=== PATIENT | female | born 1960 | race Hispanic/Latino ===

== ENCOUNTER 2024-01-09 00:16 | Observation (INO) | payer OTHER, MEDICARE ==
[2024-01-09] VITALS (12 sets, daily range): BP systolic 104–150; BP diastolic 47–91; PULSE 66–96; RESP 17–22; O2SAT 96
[~2024-01-09] VITALS: Ht 165.1 cm; Wt 74.2 kg
[~2024-01-09 00:16] MED LIST: CALC200T16 PO; CYCL-309 PO; FAMO20TA8 PO; FISH1CAP63 PO; HYDR-3421 PO; HYDR25TA PO; IBUP-2077 PO; METO-408 PO; NETA2.5D3 OU; RIVA20TA PO; SEMA0.258 SQ
[2024-01-09] MEDS: DILTIAZEM 25MG INJ IVP ONE ×3 (00:19→01:26)
[2024-01-09] MEDS: AMIODARONE 150MG VIAL 150 MG in DEXTROSE 5%-WATER 100 ML IV SCH (00:22)
[2024-01-09] MEDS: AMIODARONE 150MG VIAL ONE (00:29)
[2024-01-09] MEDS: SOLU-MEDROL 125MG VIAL ONE (00:44)
[2024-01-09] MEDS: DiphenhydrAMINE HCL 50 MG/ML VIAL ONE (00:44)
[2024-01-09] MEDS: SOLU-MEDROL 125MG VIAL IVP ONE (00:46)
[2024-01-09] MEDS: DiphenhydrAMINE HCL 50 MG/ML VIAL IV ONE (00:46)
[2024-01-09] MEDS: ONDANSETRON 4MG INJ IVP ONE ×2 (00:47)
[2024-01-09 01:05] LABS: APPEARANCE,URINE CLEAR (CLEAR); BILIRUBIN,URINE NEGATIVE (NEGATIVE); COLOR,URINE COLORLESS (YELLOW); GLUCOSE, URINE (UA) NEGATIVE (NEGATIVE); KETONES,URINE NEGATIVE (NEGATIVE); LEUKOCYTE ESTERASE ,URINE NEGATIVE Leu/uL (NEGATIVE); NITRATE,URINE NEGATIVE (NEGATIVE); OCCULT BLOOD,URINE NEGATIVE (NEGATIVE); PH,URINE 6.5 (5.0-8.0); PROTEIN,URINE NEGATIVE (NEGATIVE); UROBILINOGEN,URINE 0.2 mg/dL (0.2-1.0)
[2024-01-09 01:07] LABS: ADD UA MICROSCOPIC NO
[2024-01-09 01:09] LABS: BASOPHILS # (AUTO) 0.09 K/uL (0.00-0.20); BASOPHILS % (AUTO) 0.8 % (0.0-5.0); EOSINOPHILS # (AUTO) 0.28 K/uL (0.00-0.70); EOSINOPHILS % (AUTO) 2.5 % (0.0-8.0); HEMATOCRIT 48.3 % (36-48); IMMATURE GRANULOCYTE ABSOLUTE 0.04 K/uL (0-1); LYMPHOCYTES # (AUTO) 4.7 K/uL (1.0-4.8); LYMPHOCYTES % (AUTO) 41.2 % (21.0-51.0); MEAN CORPUSCULAR HEMOGLOBIN 30.9 pg (27.0-33.0); MEAN CORPUSCULAR HGB CONC 33.5 g/dL (32.0-36.0); MEAN CORPUSCULAR VOLUME 92.2 fL (79-99); MONOCYTES # (AUTO) 0.7 K/uL (0.1-1.0); NEUTROPHILS # (AUTO) 5.6 K/uL (1.8-7.7); NEUTROPHILS % (AUTO) 49.1 % (40.0-77.0); PLATELET COUNT (AUTO) 304 K/uL (130-400); RED BLOOD CELL COUNT(AUTO) 5.24 MIL/uL (4.00-5.50); RED CELL DISTRIBUTION WIDTH 13.3 % (11.0-15.5); WHITE BLOOD COUNT (AUTO) 11.4 K/uL (4.8-10.8)
[2024-01-09 01:21] LABS: INR 1.17 (0.85-1.15); PROTHROMBIN TIME 13.6 SEC (9.6-11.6)
[2024-01-09 01:25] LABS: CREATININE 0.6 mg/dL (0.5-1.5); POTASSIUM 3.2 mmol/L (3.5-5.1)
[2024-01-09] MEDS: LACTATED RINGERS 1000ML 1,000 ML IV ONE (01:25)
[2024-01-09] MEDS: DILTIAZEM 125 MG/25 ML INJ 125 MG in 0.9%NACL 100ML 100 ML IV SCH (01:28)
[2024-01-09 01:30] LABS: ALBUMIN 3.2 g/dL (3.5-5.0); BILIRUBIN,TOTAL 0.6 mg/dL (0.2-1.0); TOTAL PROTEIN, SERUM 6.8 g/dL (6.0-8.3)
[2024-01-09 01:38] LABS: B-TYPE NATRIURETIC PEPTIDE 17 pg/mL (0-100)
[2024-01-09 01:55] LABS: PARTIAL THROMBOPLASTIN TIME 46.1 SEC (26.3-35.5)
[2024-01-09] MEDS: ACETAMINOPHEN 500 MG TABLET PO ONE (01:57)
[2024-01-09] MEDS ORDERED: LACTULOSE 20 GM/30 ML UDCUP PO PRN (02:30)
[2024-01-09] MEDS ORDERED: LABETALOL 20MG SYG IV PRN (02:30)
[2024-01-09] MEDS ORDERED: ONDANSETRON 4MG INJ IVP PRN (02:30)
[2024-01-09] MEDS ORDERED: POTASSIUM CHLORIDE 10MEQ/100ML 100 ML IV PRN (02:30)
[2024-01-09] MEDS: POTASSIUM CHLORIDE 10% ELIXIR 20 MEQ/15 ML UDCUP PO PRN (02:40)
[2024-01-09] MEDS: KCL 20 MEQ ERTAB PO PRN (04:26)
[2024-01-09] MEDS: NITROGLYCERIN 1GM OINT 1 INCH/1GM TD ONE (07:15)
[2024-01-09] MEDS: ASPIRIN 81MG CHEW TAB PO SCH (09:17)
[2024-01-09] MEDS: FAMOTIDINE 20MG VIAL IV SCH (09:17)
[2024-01-09] MEDS: METOPROLOL SUCCINATE 50 MG TAB.SR.24H PO ONE (22:19)
[2024-01-09] MEDS: TEMAZEPAM 15 MG CAPSULE PO PRN (22:19)
[2024-01-10 00:20] VITALS: BP 134/70; PULSE 73; RESP 20
[2024-01-10] MEDS ORDERED: NACL NASAL SPRAY 120 SPRAY/BOTTLE NS PRN ×2 (00:30→07:30)
[2024-01-10 04:00] VITALS: BP 127/70; PULSE 73; RESP 20
[2024-01-10 05:05] LABS: BASOPHILS # (AUTO) 0.06 K/uL (0.00-0.20); BASOPHILS % (AUTO) 0.3 % (0.0-5.0); EOSINOPHILS # (AUTO) 0.04 K/uL (0.00-0.70); EOSINOPHILS % (AUTO) 0.2 % (0.0-8.0); HEMATOCRIT 41.9 % (36-48); LYMPHOCYTES # (AUTO) 4.7 K/uL (1.0-4.8); LYMPHOCYTES % (AUTO) 27.4 % (21.0-51.0); MEAN CORPUSCULAR HEMOGLOBIN 30.3 pg (27.0-33.0); MEAN CORPUSCULAR HGB CONC 33.2 g/dL (32.0-36.0); MEAN CORPUSCULAR VOLUME 91.3 fL (79-99); MONOCYTES # (AUTO) 0.9 K/uL (0.1-1.0); MONOCYTES % (AUTO) 5.4 % (3.0-13.0); NEUTROPHILS # (AUTO) 11.4 K/uL (1.8-7.7); NEUTROPHILS % (AUTO) 66.1 % (40.0-77.0); PLATELET COUNT (AUTO) 318 K/uL (130-400); RED BLOOD CELL COUNT(AUTO) 4.59 MIL/uL (4.00-5.50); RED CELL DISTRIBUTION WIDTH 13.5 % (11.0-15.5); WHITE BLOOD COUNT (AUTO) 17.3 K/uL (4.8-10.8)
[2024-01-10 05:29] LABS: CREATININE 0.5 mg/dL (0.5-1.5); MAGNESIUM 2.1 mg/dL (1.80-2.40); POTASSIUM 3.7 mmol/L (3.5-5.1)
[2024-01-10] MEDS: ACETAMINOPHEN 325 MG TAB PO PRN (05:35)
[2024-01-10 07:53] VITALS: BP 150/90; PULSE 68; RESP 18
[2024-01-10 08:00] VITALS: O2SAT 96
[2024-01-10 12:11] VITALS: BP 164/92; PULSE 68; RESP 18
[2024-01-10 16:01] VITALS: BP 142/105; PULSE 73; RESP 18
[2024-01-10] MEDS ORDERED: CYCLOBENZAPRINE HCL 10 MG TABLET PO PRN (16:30)
[2024-01-10] MEDS ORDERED: HYDROXYZINE 25 MG TABLET PO PRN (16:30)
[2024-01-10] MEDS ORDERED: METOPROLOL SUCCINATE 25 MG TAB.SR.24H PO SCH (21:00)
[2024-01-10] MEDS ORDERED: RIVAROXABAN 20 MG TABLET PO SCH (21:00)
[2024-01-10] MEDS ORDERED: FAMOTIDINE 20MG TAB PO SCH (21:00)
[2024-01-11] MEDS ORDERED: HYDROCHLOROTHIAZIDE 25 MG TABLET PO SCH (09:00)
[2024-01-11] MEDS ORDERED: FAMOTIDINE 20MG TAB PO SCH (09:00)
== END 2024-01-10 17:30 | disposition home or self-care (01) ==
LOC: EDH 00:16 → EDHIP 02:15 → 2AH 03:00
PROVIDERS: ADMIT Internal Medicine Critical Care Medicine; ATTEND Internal Medicine Critical Care Medicine
DX: I48.20 Chronic atrial fibrillation, unspecified (principal); R07.89 Other chest pain; E87.6 Hypokalemia; E78.5 Hyperlipidemia, unspecified; M48.061 Spinal stenosis, lumbar region without neurogenic claudication; F41.9 Anxiety disorder, unspecified; H40.9 Unspecified glaucoma; I10 Essential (primary) hypertension; I44.7 Left bundle-branch block, unspecified; T46.2X5A Adverse effect of other antidysrhythmic drugs, initial encounter; Z79.01 Long term (current) use of anticoagulants; Z79.899 Other long term (current) drug therapy; Z87.891 Personal history of nicotine dependence; Z90.710 Acquired absence of both cervix and uterus; Z90.711 Acquired absence of uterus with remaining cervical stump
CPT/HCPCS: 96376 ×2; 96365; 96375; 96366; 84443; 82550; 83735 ×2; 84484 ×4; 80061; 80053; 83880; 85025 ×2; 85378; 85610; 85730; 87077; 87088; 87186; 81003; 36415 ×2; 71045; 93306; 99291; 99292; 93005 ×2; 84100; 80048; G0378 ×38; J1200; J3490 ×5; J2930; J2405; J0282

== ENCOUNTER 2024-09-25 22:11 | Observation (INO) | payer OTHER, MEDICARE ==
[~2024-09-25] VITALS: Ht 165.1 cm; Wt 75.3 kg
[2024-09-25] MEDS: dilTIAZem 25MG INJ IVP ONE ×2 (22:44→22:46)
--- NOTE | 2024-09-25 22:57 | ERN ---
ED Note History of Present Illness Stated Complaint: CHEST PAIN Chief Complaint: Chest Pain Time Seen by MD: 22:18 Dictation: Patient is 64-year-old female who came via EMS with complaints of severe left- sided chest pain that started around 8:00 p.m. which is about 2-3 hours ago. She was noted to be quite diaphoretic and was in severe discomfort. She thought that she was having severe anxiety attack. She reports some nausea but no loss of consciousness. She appeared very sick during my evaluation. Her last meal was around 2:00 p.m.. No cough sputum or hemoptysis Temperature 98 pulse 148 respirations 16 blood pressure 106/92 with a pulse oxi metry of 97% on room air Her chronic medical problems include diabetes mellitus, hypertension, atrial fibrillation on Xarelto, anxiety, gastroesophageal reflux disease, hypercholesterolemia Allergies: Coded Allergies: amiodarone (Verified Allergy, Severe, HIVES, 01/09/24) caffeine (Verified Allergy, Intermediate, palptiations, 05/05/22) pseudoephedrine (Verified Allergy, Unknown, palpitations, 05/05/22) atorvastatin (Unverified Adverse Reaction, Severe, 05/12/17) MUSCLE WEAKNESS Home Meds Active Scripts Hydrochlorothiazide (Hydrochlorothiazide) 25 Mg Tablet, 12.5 MG PO DAILY, #30 TAB Prov:TRINA ALFARO [facility] 10/06/23 Famotidine (Famotidine) 20 Mg Tablet, 20 MG PO DAILY, #30 TAB Prov:TRINA ALFARO [facility] 10/06/23 Cyclobenzaprine HCl (Cyclobenzaprine HCl) 10 Mg Tablet, 5 MG PO TID PRN for MUSCLE SPASM, #30 TAB Prov:TRINA ALFARO [facility] 10/06/23 Reported Medications Calcium Citrate (Calcium Citrate) 200 Mg (950 Mg) Tablet, 1 TAB PO BID 10/02/23 Netarsudil Mesylat/Latanoprost (Rocklatan 0.02%-0.005% Eye Drp) 0.02 %-0.005 % Drops, 1 DROP OU HS 10/02/23 Ibuprofen (Ibuprofen 800 mg Tab) 800 Mg Tab, 1 TAB PO TID PRN for PAIN LEVEL 1 TO 5 10/02/23 Semaglutide (Ozempic) 0.25 Mg/0.368 Ml Pen.injctr, 0.25 MG SQ QWEEK 10/02/23 Rivaroxaban (Xarelto) 20 Mg Tablet, 20 MG PO HS, TAB 10/02/23 Metoprolol Succinate (Metoprolol Succinate) 25 Mg Tab.er.24h, 1 TAB PO HS 10/02/23 Fish Oil/Dha/Epa (Fish Oil 1,200 mg Fish Oil) 1 Each Capsule, 1 EACH PO DAILY, CAP 05/11/17 Hydroxyzine HCl (Hydroxyzine HCl) 25 Mg Tablet, 25 MG PO HS PRN for INSOMNIA, TAB 05/11/17 Past Medical History Past Medical History: A-Fib, Anxiety, Glaucoma, Hypertension Surgical History: Hysterectomy, Cholecystectomy Surgical History Other: R ANKLE Family History: Negative Social History: Smokers, Lives with family History: Not Applicable RN Note Reviewed/Agreed w/PFSH: Yes Review of System Dictation Constitutional: Negative for fever,chills, and weight loss Eyes: Negative for injury, pain,redness, and discharge ENT: Negative for injury,pain or swelling Cardiovascular: Positive for chest pain, palpitations, and no edema Respiratory: Negative for shortness of breath, cough, and wheezing, Abdomen/GI: Negative for abdominal pain, nausea, vomiting, diarrhea, and constipation Back: Negative for injury and pain : Negative for injury, bleeding and discharge MS/Extremity: Negative for injury and deformity Skin: Negative for rash, and discoloration Neuro: Negative for headache, weakness, numbness, tingling, and seizure Psych: Negative for suicide ideation, homicidal ideation, and hallucinations Initial Vital Sign VS Vital Signs Date Time Temp Pulse Resp B/P (MAP) Pulse Ox O2 Delivery O2 Flow Rate FiO2 09/25/24 22:24 98.1 148 16 106/92 97 Room Air 0 09/25/24 22:44 21 Physical Exam Dictation General: awake, alert, NAD , diaphoretic appears very sick Head/Face: Normocephalic, atraumatic Eyes: PERRL, EOMI, vision at baseline ENT: oral cavity clear, TMs clear, no signs of infection Neck: Trachea midline, supple, no nuchal rigidity Cardiovascular: Tachycardic irregular heart rates around 160s No MRGs, no JVD Respiratory: CTAB, no respiratory distress, No rales or wheezes Abdomen: Soft, non-tender, non-distended, normal bowel sounds, no guarding or rebound. Skin: Warm, dry, normal turgor, no rash MS/Extremity: Pulses equal, no cyanosis, neurovascular intact, FROM Neuro: COAx4, GCS 15, strength 5/5, CN 2-12 intact, normal cerebellar exam, normal gait, Psych: Normal behavior, mood, and affect normal Extremities-trace edema without any palpable cords, Homans sign is negative Results (Laboratory/Radiology) Laboratory/Radiology Laboratory Tests Test 09/25/24 22:34 09/25/24 22:52 09/25/24 23:13 Whole Blood Glucose 156 MG/DL (70-110) H White Blood Count 16.7 K/uL (4.8-10.8) H Red Blood Count 5.05 MIL/uL (4.00-5.50) Hemoglobin 15.3 g/dL (12.0-16.0) Hematocrit 44.7 % (36-48) Mean Corpuscular Volume 88.5 fL (79-99) Mean Corpuscular Hemoglobin 30.3 pg (27.0-33.0) Mean Corpuscular Hemoglobin Concent 34.2 g/dL (32.0-36.0) Red Cell Distribution Width 13.0 % (11.0-15.5) Platelet Count 314 K/uL (130-400) Mean Platelet Volume 10.0 fL (7.5-10.5) Immature Granulocyte % (Auto) 0.6 % (0-1) Neutrophils (%) (Auto) 57.3 % (40.0-77.0) Lymphocytes (%) (Auto) 35.4 % (21.0-51.0) Monocytes (%) (Auto) 4.5 % (3.0-13.0) Eosinophils (%) (Auto) 1.7 % (0.0-8.0) Basophils (%) (Auto) 0.5 % (0.0-5.0) Neutrophils # (Auto) 9.6 K/uL (1.8-7.7) H Lymphocytes # (Auto) 5.9 K/uL (1.0-4.8) H Monocytes # (Auto) 0.8 K/uL (0.1-1.0) Eosinophils # (Auto) 0.29 K/uL (0.00-0.70) Basophils # (Auto) 0.08 K/uL (0.00-0.20) Absolute Immature Granulocyte (auto 0.10 K/uL (0-1) Segmented Neutrophils % 61 % (40-70) Lymphocytes % (Manual) 33 % (22-44) Monocytes % (Manual) 4 % (2-9) Eosinophils % (Manual) 2 % (1-6) Nucleated Red Blood Cells 0.0 % (0.0-0.19) Differential Comment MANUAL DIFFERENTIAL White Cell Morphology Comment Platelet Morphology Comment See comments Red Blood Cell Morphology See comments Sodium Level 140 mmol/L (136-145) Potassium Level 2.8 mmol/L (3.5-5.1) *L Chloride Level 103 mmol/L (101-111) Carbon Dioxide Level 25 mmol/L (21-32) Blood Urea Nitrogen 10 mg/dL (7-18) Creatinine 0.6 mg/dL (0.5-1.0) Glomerular Filtration Rate Calc 99 mL/min (>90) Random Glucose 169 mg/dL (70-105) H Total Calcium 9.4 mg/dL (8.5-10.1) Troponin I High Sensitivity 8 ng/L (4-50) B-Type Natriuretic Peptide 28 pg/mL (0-100) Troponin I < 0.05 ng/mL (0.00-0.05) Labs Reviewed?: Yes EKG Comment: Twelve lead EKG done on 09/25/2024 at 10:30 p.m. showed an irregular rhythm with a heart rate of 155, QRS 77 QT/QTC 266/428 Impression atrial fibrillation with rapid ventricular response multiple polymorphic PVCs noted. Repolarization abnormalities read related also noted. No acute ST elevations or deep ST depressions noted. Interpreted by Dr. Cornell X-RAY Comment: PATIENT: CHET HA MR#: [id number] : 1960 SEX: F AGE: 64 LOCATION: ED ORDER 22 STATUS: [facility] REPORT#: [id number] SERVICE 20 REASON: Chest pain Known CAD, afib, evaluate for CHF ORDERING PHYSICIAN: TRINA CORNELL MD PROCEDURE: CXR1VW - CHEST 1VW CHEST 1VW HISTORY: Chest pain COMPARISON: 01/09/2024 FINDINGS: A frontal projection of the chest was obtained. No acute pulmonary infiltrates is seen. The heart is normal in size. Prominent interstitial markings are seen. Aortic calcifications are seen. No evidence of aortic calcification is seen. IMPRESSION: 1. No acute pulmonary infiltrate is seen. DICTATED BY: NICK SABA MD DATE: 09/25/242300 ELECTRONICALLY SIGNED BY: NICK SABA MD DATE: 09/25/242303 ED Course ED Course Orders Procedure Category Date Status Time Cbc With Differential LAB 09/25/24 Complete 22:21 B-Type Natriuretic LAB 09/25/24 Complete Peptide 22:21 Chest 1vw RAD 09/25/24 Resulted 22:21 12 Lead Ekg Tracing- EKG 09/25/24 Logged Technical 22:21 Nitroglycerin 1gm PHA 09/25/24 Complete Oint (Nitroglycerin 1g 22:30 Troponin I High LAB 09/25/24 Complete Sensitivity 22:21 Aspirin 325mg Tab PHA 09/25/24 Complete (Aspirin 325mg Tab) 22:30 Troponin Poc Order LAB 09/25/24 Complete Only 22:21 Bedside Troponin-I LAB.ER 09/25/24 In Process (Poc) 22:21 Basic Metabolic Panel LAB 09/25/24 Complete 22:21 Diltiazem 25mg Inj PHA 09/25/24 Complete (Cardizem 25mg Inj) 23:00 Diltiazem 25mg Inj PHA 09/25/24 Complete (Cardizem 25mg Inj) 22:38 Manual Differential LAB 09/25/24 Complete 22:52 Potassium Bicarb/Cit PHA 09/25/24 Complete Ac 25meq (K-Lyte Ta 23:30 Urinalysis Profile LAB 09/25/24 Logged 23:54 Admit Orders ADM 09/26/24 Transmitted 00:03 Edm Admit Bridge Order ADM 09/26/24 Transmitted 00:14 Current Medications Medications (Trade) Dose Ordered Sig/Giorgio Route PRN Reason Start Time Stop Time Status Last Admin Dose Admin Aspirin (Aspirin 325mg Tab) 325 mg ONCE ONCE PO 09/25/24 22:30 09/25/24 22:31 DC 09/25/24 23:01 Diltiazem HCl (CARDIzem 25MG INJ) 10 mg ONCE ONCE IVP 09/25/24 23:00 09/25/24 23:01 DC 09/25/24 22:46 Diltiazem HCl (CARDIzem 25MG INJ) 25 mg STK-MED ONCE IVP 09/25/24 22:38 09/25/24 22:39 DC Nitroglycerin (Nitroglycerin 1gm Oint) 1 inch ONCE ONCE TD 09/25/24 22:30 09/25/24 22:31 DC 09/25/24 23:07 Potassium Bicarbonate (K-Lyte Tablet Eff 25 Meq Tablet.eff) 50 meq ONCE ONCE PO 09/25/24 23:30 09/25/24 23:31 DC 09/25/24 23:22 Vital Signs Date Time Temp Pulse Resp B/P (MAP) Pulse Ox O2 Delivery O2 Flow Rate FiO2 09/25/24 22:44 125 24 126/86 97 Room Air* 0 21 09/25/24 22:44 155 09/25/24 22:24 98.1 148 16 106/92 97 Room Air 0 We will perform diagnostic labs, advanced imaging and administer medications according to the patient's complaint. Once the results are available, will review and personally interpreted the labs to rule out any acute life- threatening emergency the trach require immediate intervention and treatment. I will then re-evaluate the patient after treatment and diagnostic exams have return to determine whether the patient requires any further testing, can safely be discharged home or need further admission to hospital for additional treatment and evaluation. Labs reviewed CBC shows a white count of 16.7, BNP 7 is significant for a potassium of 2.8 BUN and creatinine are 10 and 0.6. Chest x-ray mild cardiomegaly. Urinalysis is still pending. Potassium repletion requested Patient responded very well to a dose of diltiazem 10 mg IV. Recommended admission to the hospital for further management. Patient accepted by the [facility] hospitalist group nurse practitioner Xiao for admission and further management. HEART Score Response (Comments) Value History: Moderate suspicion (+1) 1 EKG: Repolarization changes 1 Age: > 65yrs (+2) 2 Initial Troponin: 1-3x Normal Limit (+1) 1 HEART Score Risk: Mod Risk for MACE (4-6) Total 5 Medical Decision Making MDM MDM: Differential diagnosis: Atrial fibrillation with rapid ventricular response, chest pain related to AFib, unstable angina Rationale: Tests considered and ordered secondary to shared decision making include: labs, ECG and radiology Previous outside records reviewed: Old ER visits. Risk of complication and/or morbidity or mortality of patient management: None Medications-Per medication reconciliation Need for hospitalization: Patient does meet criteria for hospitalization. Need for emergency major/minor surgery: No There are no social concerns with this patient. Prescription drug management Prescriptions will include symptomatic care Patient's prior external medical records from other ER visits were reviewed by me as indicated. Prior testing and results from previous visits were reviewed. Prior tests were taken into account with medical decision making and resource utilization, independent historian/historians were used to obtain complete medical history. I independently interpreted the test that were performed, results were reviewed by me and considered findings on radiology if ordered. Medical management and examination interpretation discussions were had by me with other qualified healthcare professionals as indicated for the patient's care. Problem List Problem List: (1) Diabetes mellitus (2) Hypercholesterolemia (3) Hypertension (4) Atrial fibrillation with rapid ventricular response (5) Chest pain (6) Hypokalemia DX & DISP Disposition: Inpatient Decision to Admit Time: 22:57 Departure Impression: Primary Impression: Atrial fibrillation with rapid ventricular response Additional Impressions: Chest pain, Diabetes mellitus, Hypercholesterolemia, Hypertension, Hypokalemia, Hypotension Condition: Stable Additional Instructions: Patient was informed of all the diagnostic labs and procedures conducted in the emergency room today and demonstrated understanding of the results. I personally reviewed and interpreted all the diagnostic exams performed in the ER today. The patient will be admitted to the hospital for further treatment and evaluation. Disposition-admit to facility Condition-stable/guarded Course-uncertain at this time Pain status-decreased Assessment-exam unchanged Admission Certification- I certify that the patients status is appropriate and is based on my best clinical judgment and the patient's condition as documented in the medical records Referrals: SARAH YO MD (PCP) TRINA CORNELL MD Sep 25, 2024 22:57
[2024-09-25 23:00] LABS: BASOPHILS # (AUTO) 0.08 K/uL (0.00-0.20); BASOPHILS % (AUTO) 0.5 % (0.0-5.0); EOSINOPHILS # (AUTO) 0.29 K/uL (0.00-0.70); EOSINOPHILS % (AUTO) 1.7 % (0.0-8.0); HEMATOCRIT 44.7 % (36-48); LYMPHOCYTES # (AUTO) 5.9 K/uL (1.0-4.8); LYMPHOCYTES % (AUTO) 35.4 % (21.0-51.0); MEAN CORPUSCULAR HEMOGLOBIN 30.3 pg (27.0-33.0); MEAN CORPUSCULAR HGB CONC 34.2 g/dL (32.0-36.0); MEAN CORPUSCULAR VOLUME 88.5 fL (79-99); MONOCYTES # (AUTO) 0.8 K/uL (0.1-1.0); MONOCYTES % (AUTO) 4.5 % (3.0-13.0); NEUTROPHILS # (AUTO) 9.6 K/uL (1.8-7.7); NEUTROPHILS % (AUTO) 57.3 % (40.0-77.0); PLATELET COUNT (AUTO) 314 K/uL (130-400); RED BLOOD CELL COUNT(AUTO) 5.05 MIL/uL (4.00-5.50); WHITE BLOOD COUNT (AUTO) 16.7 K/uL (4.8-10.8)
[2024-09-25] MEDS: ASPIRIN 325MG TAB PO ONE (23:01)
--- NOTE | 2024-09-25 23:04 | HMCIMG ---
CHEST 1VW HISTORY: Chest pain COMPARISON: 01/09/2024 FINDINGS: A frontal projection of the chest was obtained. No acute pulmonary infiltrates is seen. The heart is normal in size. Prominent interstitial markings are seen. Aortic calcifications are seen. No evidence of aortic calcification is seen. IMPRESSION: 1. No acute pulmonary infiltrate is seen.
[2024-09-25] MEDS: NITROGLYCERIN 1GM OINT 1 INCH/1GM TD ONE (23:07)
[2024-09-25 23:10] LABS: CREATININE 0.6 mg/dL (0.5-1.0)
[2024-09-25 23:14] LABS: POTASSIUM 2.8 mmol/L (3.5-5.1)
[2024-09-25] MEDS: PoTASSium BIcarbonate/CIT AC 25 MEQ TABLET.EFF PO ONE (23:22)
[2024-09-25 23:49] LABS: EOSINOPHILS % (MANUAL) 2 % (1-6); LYMPHOCYTES % (MANUAL) 33 % (22-44); MAN.DIFF COMMENT-IMPRESSION MANUAL DIFFERENTIAL; MONOCYTES % (MANUAL) 4 % (2-9); SEGMENTED NEUTROPHILS % 61 % (40-70); TOTAL CELLS COUNTED 100
[2024-09-25 23:51] LABS: B-TYPE NATRIURETIC PEPTIDE 28 pg/mL (0-100)
[2024-09-26] VITALS (8 sets, daily range): BP systolic 118–154; BP diastolic 49–97; PULSE 65–73; RESP 16–18; TEMP 97.4–98.4; O2SAT 95–99
[2024-09-26] MEDS: PoTASSium chloRIDE 20MEQ ER 20 MEQ ERTAB PO ONE (02:05)
[2024-09-26] MEDS: ondanSETRON 4MG INJ IVP ONE (02:05)
--- NOTE | 2024-09-26 05:03 | NUR ---
REPORT GIVEN TO SHILPA RIBEIRO
--- NOTE | 2024-09-26 06:31 | EKG ---
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
[2024-09-26] MEDS ORDERED: hydrALAZine 20MG/ML VIAL IV PRN (07:30)
[2024-09-26] MEDS ORDERED: doCUSate SODIUM 100 MG CAP PO PRN (07:30)
[2024-09-26] MEDS ORDERED: LACTULOSE 20 GM/30 ML UDCUP PO PRN (07:30)
[2024-09-26] MEDS ORDERED: ondanSETRON 4MG INJ IVP PRN (07:30)
[2024-09-26] MEDS ORDERED: acetaMINOPHEN 650 MG SUPPOSITORY RC PRN (07:30)
[2024-09-26] MEDS: INSULIN humuLIN R 100 UNIT/ML 3ML SQ SCH (07:30)
[2024-09-26] MEDS ORDERED: DEXTROSE 50%-WATER 50 ML DISP.SYRIN IV PRN (08:00)
[2024-09-26] MEDS ORDERED: PoTASSium chloRIDE 20MEQ/100ML 100 ML IV PRN (08:00)
[2024-09-26] MEDS ORDERED: GLUCAGON 1MG KIT 1 MG ML IM PRN (08:00)
[2024-09-26] MEDS ORDERED: MAGNESIUM 2GM PREMIX 50ML 50 ML IV PRN (08:00)
[2024-09-26] MEDS ORDERED: PoTASSium chloRIDE 20MEQ ER 20 MEQ ERTAB PO PRN (08:00)
[2024-09-26] MEDS ORDERED: PoTASSium chl 10% ELIXIR 20MEQ 20 MEQ/15 ML UDCUP PO PRN (08:00)
[2024-09-26] MEDS ORDERED: METO-391 PO (08:20)
[2024-09-26] MEDS ORDERED: AMLO-257 PO (08:20)
[2024-09-26] MEDS ORDERED: EVOL140P3 SQ (08:20)
[2024-09-26] MEDS ORDERED: COSO10OS OU (08:20)
[2024-09-26] MEDS: FAMOTIDINE 20MG TAB PO SCH (08:31)
[2024-09-26] MEDS: RIVAROXABAN 20 MG TABLET PO SCH (08:31)
[2024-09-26] MEDS: metOPROLol sucCINATE 50 MG TAB.SR.24H PO SCH (08:31)
[2024-09-26 08:32] LABS: BASOPHILS # (AUTO) 0.07 K/uL (0.00-0.20); BASOPHILS % (AUTO) 0.5 % (0.0-5.0); EOSINOPHILS # (AUTO) 0.14 K/uL (0.00-0.70); EOSINOPHILS % (AUTO) 1.1 % (0.0-8.0); HEMATOCRIT 43.8 % (36-48); IMMATURE GRANULOCYTE ABSOLUTE 0.05 K/uL (0-1); LYMPHOCYTES # (AUTO) 5.2 K/uL (1.0-4.8); LYMPHOCYTES % (AUTO) 39.4 % (21.0-51.0); MEAN CORPUSCULAR HGB CONC 33.3 g/dL (32.0-36.0); MEAN CORPUSCULAR VOLUME 90.1 fL (79-99); MONOCYTES # (AUTO) 0.7 K/uL (0.1-1.0); MONOCYTES % (AUTO) 5.1 % (3.0-13.0); NEUTROPHILS % (AUTO) 53.5 % (40.0-77.0); PLATELET COUNT (AUTO) 333 K/uL (130-400); RED BLOOD CELL COUNT(AUTO) 4.86 MIL/uL (4.00-5.50); RED CELL DISTRIBUTION WIDTH 13.3 % (11.0-15.5); WHITE BLOOD COUNT (AUTO) 13.1 K/uL (4.8-10.8)
[2024-09-26 08:40] LABS: HEMOGLOBIN A1C 5.5 % (4.0-6.0)
[2024-09-26 08:55] LABS: CREATININE 0.5 mg/dL (0.5-1.0); MAGNESIUM 2.1 mg/dL (1.80-2.40); PHOSPHORUS 3.8 mg/dL (2.5-4.9); POTASSIUM 4.4 mmol/L (3.5-5.1); THYROID STIMULATING HORMONE 1.38 uIU/mL (0.36-3.74)
[2024-09-26] MEDS: HEParin 5,000 UNIT VIAL IV PRN (12:36)
[2024-09-26] MEDS: HEParin 25,000 UNITS/250ML D5W 250 ML IV SCH (12:52)
--- NOTE | 2024-09-26 15:10 | HP ---
[facility] HISTORY & PHYSICAL Date Patient Seen: Sep 26, 2024 Time of Visit: 1315 Supervising Physician: Dr. Bailey Primary Care Physician: Dr. Ambriz Outpatient Specialists: [ ] Inpatient Consults: Cardiology PROBLEM LIST: AFib with RVR on Xarelto Non-STEMI likely type 2 ischemic demand secondary to above Left ventricular ejection fraction 70% as per echocardiogram 01/09/2024 Hypertension Hyperlipidemia Anxiety GERD HPI: Patient is 64-year-old female who came via EMS with complaints of severe left- sided chest pain that started around 8:00 p.m. which is about 2-3 hours ago. She was noted to be quite diaphoretic and was in severe discomfort. She thought that she was having severe anxiety attack. She reports some nausea but no loss of consciousness. She appeared very sick during my evaluation. Her last meal was around 2:00 p.m.. No cough sputum or hemoptysis Temperature 98 pulse 148 respirations 16 blood pressure 106/92 with a pulse oximetry of 97% on room air Her chronic medical problems include diabetes mellitus, hypertension, atrial fibrillation on Xarelto, anxiety, gastroesophageal reflux disease, hype rcholesterolemia Patient was seen and examined by bedside with no family present. Patient is awake alert able to answer simple questions appropriately. At time of visit patient reports mild chest pain, but denies any shortness of breadth. Patient initially presented to the emergency room with severe left-sided chest pain, and being diaphoretic. Patient's initial troponin level negative, repeat troponin came back 478, at this time we will start patient on heparin drip, and consult patient's carder blankets appreciate assistance we will follow their recommendations. We will repeat patient's troponin, and continue to monitor patient via telemetry. Patient is back in normal sinus rhythm, patient denies nausea vomiting abdominal pain. We will continue to monitor patient closely Plan summary Start heparin drip per CAD protocol Repeat troponin level Start aspirin 80 mg daily Consult cardiology Continue to monitor via telemetry Continue metoprolol succinate 50 mg daily Follow up with echocardiogram PAST MEDICAL HX: see above PAST SURGICAL HX: noncontributory SOCIAL HISTORY: No tobacco, ETOH, or illicit drug use Coded Allergies: amiodarone (Verified Allergy, Severe, HIVES, 01/09/24) caffeine (Verified Allergy, Intermediate, palptiations, 05/05/22) pseudoephedrine (Verified Allergy, Unknown, palpitations, 05/05/22) atorvastatin (Unverified Adverse Reaction, Severe, 05/12/17) MUSCLE WEAKNESS REVIEW OF SYSTEMS: 12 point ROS reviewed with patient. Pertinent positives mentioned above. O therwise negative. PHYSICAL EXAM: GENERAL: alert, weak, awake oriented x 3 HEENT: EOMI, Sclera non icteric, moist mucosa NECK: Supple, no JVD, trachea midline LUNGS: Clear breath sounds bilaterally. No wheezes HEART: Regular rate and rhythm. Normal S1 and S2, without murmurs ABD: Abdomen soft, nontender. Bowel sounds present EXT: No clubbing cyanosis or edema NEURO: Alert and oriented to person, follows commands Vital Signs (last 8hr) Date Time Temp Pulse Resp B/P (MAP) Pulse Ox O2 Delivery O2 Flow Rate FiO2 09/26/24 12:35 97.3 65 18 140/49 96 Room Air 09/26/24 08:30 97.5 65 18 118/70 94 Room Air LABS: Hematology Labs: Test 09/26/24 08:23 09/25/24 22:52 Range/Units White Blood Count 13.1 H 4.8-10.8 K/uL Red Blood Count 4.86 4.00-5.50 MIL/uL Hemoglobin 14.6 12.0-16.0 g/dL Hematocrit 43.8 36-48 % Mean Corpuscular Volume 90.1 79-99 fL Mean Corpuscular Hemoglobin 30.0 27.0-33.0 pg Mean Corpuscular Hemoglobin Concent 33.3 32.0-36.0 g/dL Red Cell Distribution Width 13.3 11.0-15.5 % Platelet Count 333 130-400 K/uL Mean Platelet Volume 10.2 7.5-10.5 fL Immature Granulocyte % (Auto) 0.4 0-1 % Neutrophils (%) (Auto) 53.5 40.0-77.0 % Lymphocytes (%) (Auto) 39.4 21.0-51.0 % Monocytes (%) (Auto) 5.1 3.0-13.0 % Eosinophils (%) (Auto) 1.1 0.0-8.0 % Basophils (%) (Auto) 0.5 0.0-5.0 % Neutrophils # (Auto) 7.0 1.8-7.7 K/uL Lymphocytes # (Auto) 5.2 H 1.0-4.8 K/uL Monocytes # (Auto) 0.7 0.1-1.0 K/uL Eosinophils # (Auto) 0.14 0.00-0.70 K/uL Basophils # (Auto) 0.07 0.00-0.20 K/uL Absolute Immature Granulocyte (auto 0.05 0-1 K/uL Nucleated Red Blood Cells 0.0 0.0-0.19 % Segmented Neutrophils % 61 40-70 % Lymphocytes % (Manual) 33 22-44 % Monocytes % (Manual) 4 2-9 % Eosinophils % (Manual) 2 1-6 % Differential Comment MANUAL DIFFERENTIAL White Cell Morphology Comment Platelet Morphology Comment See comments Red Blood Cell Morphology See comments Chemistry Labs: Test 09/26/24 12:31 09/26/24 08:23 09/25/24 23:13 09/25/24 22:52 Range/Units Whole Blood Glucose 126 H 70-110 MG/DL Sodium Level 143 136-145 mmol/L Potassium Level 4.4 3.5-5.1 mmol/L Chloride Level 107 101-111 mmol/L Carbon Dioxide Level 30 21-32 mmol/L Blood Urea Nitrogen 9 7-18 mg/dL Creatinine 0.5 0.5-1.0 mg/dL Glomerular Filtration Rate Calc 103 >90 mL/min Random Glucose 84 # 70-105 mg/dL Hemoglobin A1c 5.5 4.0-6.0 % Estimated Average Glucose (eAG) 111 70-126 mg/dL Total Calcium 9.0 8.5-10.1 mg/dL Phosphorus Level 3.8 2.5-4.9 mg/dL Magnesium Level 2.10 1.80-2.40 mg/dL Troponin I High Sensitivity 478 *H 4-50 ng/L Thyroid Stimulating Hormone (TSH) 1.38 # 0.36-3.74 uIU/mL Troponin I < 0.05 0.00-0.05 ng/mL B-Type Natriuretic Peptide 28 0-100 pg/mL Coagulation Labs: Test 09/26/24 08:23 Range/Units Activated Partial Thromboplast Time 31.3 26.3-35.5 SEC DIAGNOSTICS / RADIOLOGY RESULTS: na PLAN NEURO: Minimize central acting medications as possible. Maintain fall precautions, adequate lighting during the day PULMONARY: Supplemental 02 as needed. Maintain aspiration precautions at all times CARDIOVASCULAR: Follow hemodynamics. Vital signs per facility protocol GI & NUTRITION: Continue with nutritional support. Continue stool softeners and laxatives as needed. KIDNEYS & ELECTROLYTES: Strict monitoring of intake, output and overall fluid balance. Avoid nephrotoxic medications to the extent possible. Medications to be dosed according to renal function. Monitor electrolytes and replace as needed ENDOCRINE: Maintain blood glucose between 100-180 at all times. Hypoglycemia protocol in place INFECTIOUS DISEASE: Trend temperature, WBC and procalcitonin level Follow cultures, deescalate antibiotics as soon as possible. Panculture if new onset fever ONCOLOGY/HEMATOLOGY/COAGULATION: Monitor for s/s of bleeding Monitor hemoglobin, coagulation studies as needed SKIN: Pressure ulcer prevention per facility protocol Specialty mattress ORTHO/REHAB: Continue PT/OT Prophylaxis: Continue GI and DVT prophylaxis Code Status: Full Resuscitation Disposition: TBD Other: Case discussed with supervising physician plan of care agreed upon LEIA MIN Sep 26, 2024 15:10
[2024-09-26] MEDS: TEMAZepam 15 MG CAPSULE PO PRN (18:43)
--- NOTE | 2024-09-26 19:39 | NUR ---
DR. SMITH ROUNDED AND REQUESTED A EKG TO BE DONE STAT MD AWARE OF EKG COMPLETED.
[2024-09-26] MEDS: LATANOPROST OU SCH (21:00)
[2024-09-26] MEDS: NETARSUDIL MESYLAT OU SCH (21:00)
[2024-09-27 00:19] VITALS: BP 149/70; PULSE 74; RESP 18; TEMP 98.4
--- NOTE | 2024-09-27 00:24 | CONS ---
CARDIOLOGY CONSULTATION HISTORY OF PRESENT ILLNESS: This is a very pleasant well known patient. She has a history of atrial fibrillation, occasionally rapidly. She also is very anxious and has frequent anxiety attacks. She had an episode of nausea and vomiting preceded by diarrhea. She subsequently had a panic attack, became tachycardic, rapid heart rate, became diaphoretic and had chest discomfort. She was brought to the emergency room where myocardial infarction was ruled out. She was treated for the arrhythmia and subsequently has converted to sinus rhythm. She is currently comfortable. She has chronic AFib, which is intermittent. She has been treated with novel drugs. She also has a history of GERD, lipid disorder. Other risk factors for coronary disease, history of mild coronary disease and hypertension. Currently, however, the patient is quite stable. She is comfortable and has no further symptoms. She did have a mild troponin elevation. She is currently in sinus rhythm. PHYSICAL EXAMINATION: HEENT: Otherwise, unremarkable. NECK: Shows no jugular venous distention. LUNGS: Clear. HEART: Regular. There is no S3. ABDOMEN: Soft. EXTREMITIES: Warm. She has good distal pulses. LABORATORY DATA: Her initial electrocardiogram showed atrial fibrillation with a rapid ventricular response 155. Repeat electrocardiogram is pending. White count is currently 13.1, H and H are 14.6 and 43. APTT is 31.3, glucose is 125, hemoglobin A1c is 5.5. Her troponin was elevated at 478 and now was reduced to 430. ASSESSMENT: Atrial fibrillation in the patient with risk factors for coronary disease and evidence of myocardial infarction. I suspect this is a type 2 myocardial infarction secondary to her stress, blood pressure and rhythm. If the troponins normalize by morning, she will have a stress test. Otherwise, stress test will be obtained later. If there is a rise in her troponin, she may require left heart catheterization. I have discussed this with her and her family, all understands and agreed. Thank you for allowing me to participate in the management of this lady. She will be followed with you. TID: [id number] RECEIPT: [id number]
[2024-09-27] MEDS: acetaMINOPHEN 325 MG TAB PO PRN (01:26)
[2024-09-27 04:39] LABS: BASOPHILS # (AUTO) 0.07 K/uL (0.00-0.20); BASOPHILS % (AUTO) 0.7 % (0.0-5.0); EOSINOPHILS # (AUTO) 0.36 K/uL (0.00-0.70); EOSINOPHILS % (AUTO) 3.4 % (0.0-8.0); HEMATOCRIT 43.4 % (36-48); IMMATURE GRANULOCYTE ABSOLUTE 0.07 K/uL (0-1); LYMPHOCYTES # (AUTO) 5.4 K/uL (1.0-4.8); LYMPHOCYTES % (AUTO) 51.3 % (21.0-51.0); MEAN CORPUSCULAR HGB CONC 32.9 g/dL (32.0-36.0); MEAN CORPUSCULAR VOLUME 91.2 fL (79-99); MONOCYTES # (AUTO) 0.6 K/uL (0.1-1.0); MONOCYTES % (AUTO) 5.8 % (3.0-13.0); NEUTROPHILS # (AUTO) 4.1 K/uL (1.8-7.7); NEUTROPHILS % (AUTO) 38.1 % (40.0-77.0); PLATELET COUNT (AUTO) 282 K/uL (130-400); RED BLOOD CELL COUNT(AUTO) 4.76 MIL/uL (4.00-5.50); RED CELL DISTRIBUTION WIDTH 13.2 % (11.0-15.5); WHITE BLOOD COUNT (AUTO) 10.6 K/uL (4.8-10.8)
[2024-09-27 04:41] VITALS: BP 151/76; PULSE 63; RESP 18; TEMP 98.8
[2024-09-27 04:57] LABS: CREATININE 0.5 mg/dL (0.5-1.0); PHOSPHORUS 4.2 mg/dL (2.5-4.9); POTASSIUM 4.6 mmol/L (3.5-5.1)
[2024-09-27 05:12] LABS: BAND NEUTROPHILS % (MANUAL) 1 % (0-2); EOSINOPHILS % (MANUAL) 2 % (1-6); LYMPHOCYTES % (MANUAL) 62 % (22-44); MAN.DIFF COMMENT-IMPRESSION MANUAL DIFFERENTIAL; MONOCYTES % (MANUAL) 4 % (2-9); PLATELET MORPHOLOGY COMMENT ADEQUATE; SEGMENTED NEUTROPHILS % 31 % (40-70); TOTAL CELLS COUNTED 100; WBC MORPHOLOGY REACTIVE LYMPHS 1+
--- NOTE | 2024-09-27 06:34 | EKG ---
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
[2024-09-27 07:20] VITALS: O2SAT 96
[2024-09-27 08:14] VITALS: BP 135/76; PULSE 69; RESP 16; TEMP 97.7
[2024-09-27] MEDS: ASPIRIN 81 MG EC TAB PO SCH (08:59)
[2024-09-27] MEDS: amLODIPine 5 MG TAB PO SCH (08:59)
[2024-09-27 12:13] VITALS: BP 145/74; PULSE 54; RESP 16; TEMP 98
[2024-09-27] MEDS: LORazepam 0.5 MG TABLET PO PRN (15:10)
--- NOTE | 2024-09-27 15:28 | PN ---
[facility] PROGRESS NOTE Date Patient Seen: Sep 27, 2024 Time of Visit: 1118 Supervising Physician: Dr. Camarena Primary Care Physician: Dr. Ambriz Outpatient Specialists: [ ] Inpatient Consults: Cardiology PROBLEM LIST: AFib with RVR on Xarelto Non-STEMI likely type 2 ischemic demand secondary to above Left ventricular ejection fraction 70% as per echocardiogram 01/09/2024 Hypertension Hyperlipidemia Anxiety GERD INTERVAL HISTORY: 09/27 patient was seen examined by bedside with no family present. Patient at time of visit denies any reoccurrence chest pain, denies shortness of breadth. Patient in and out of a flutter. Patient's troponin trending down latest troponin 217troponin level peaked at 478. Patient is still currently pending echocardiogram to be reported. As per Cardiology risk factors for coronary disease and evidence of myocardial infraction suspected to be type 2 myocardial infraction secondary to her stress blood pressure and rhythm if troponin no platelets by morning she will require stress test authorize obtain later if troponin levels continue to rise patient will require left heart catheterization. Appreciate cardiology's recommendations. Plan summary Continue heparin drip per CAD protocol As per cardiology if troponin levels normalize patient require stress test, if troponin levels continue rise we will require left heart catheterization Continue aspirin 81 mg daily Patient not on a statin medication due to being allergic Continue to monitor via telemetry Continue metoprolol succinate 50 mg daily Follow up with echocardiogram, still pending REVIEW OF SYSTEMS: 12 point ROS reviewed with patient. Pertinent positives mentioned above. Otherwise negative. PHYSICAL EXAM: GENERAL: alert, weak, awake oriented x 3 HEENT: EOMI, Sclera non icteric, moist mucosa NECK: Supple, no JVD, trachea midline LUNGS: Clear breath sounds bilaterally. No wheezes HEART: Regular rate and rhythm. Normal S1 and S2, without murmurs ABD: Abdomen soft, nontender. Bowel sounds present EXT: No clubbing cyanosis or edema NEURO: Alert and oriented to person, follows commands Vital Signs (last 8hr) Date Time Temp Pulse Resp B/P (MAP) Pulse Ox O2 Delivery O2 Flow Rate FiO2 09/27/24 12:13 98.1 54 16 145/74 98 Room Air 09/27/24 08:14 97.7 69 16 135/76 96 Room Air LABS: Hematology Labs: Test 09/27/24 04:10 Range/Units White Blood Count 10.6 4.8-10.8 K/uL Red Blood Count 4.76 4.00-5.50 MIL/uL Hemoglobin 14.3 12.0-16.0 g/dL Hematocrit 43.4 36-48 % Mean Corpuscular Volume 91.2 79-99 fL Mean Corpuscular Hemoglobin 30.0 27.0-33.0 pg Mean Corpuscular Hemoglobin Concent 32.9 32.0-36.0 g/dL Red Cell Distribution Width 13.2 11.0-15.5 % Platelet Count 282 130-400 K/uL Mean Platelet Volume 10.4 7.5-10.5 fL Immature Granulocyte % (Auto) 0.7 0-1 % Neutrophils (%) (Auto) 38.1 L 40.0-77.0 % Lymphocytes (%) (Auto) 51.3 H 21.0-51.0 % Monocytes (%) (Auto) 5.8 3.0-13.0 % Eosinophils (%) (Auto) 3.4 0.0-8.0 % Basophils (%) (Auto) 0.7 0.0-5.0 % Neutrophils # (Auto) 4.1 1.8-7.7 K/uL Lymphocytes # (Auto) 5.4 H 1.0-4.8 K/uL Monocytes # (Auto) 0.6 0.1-1.0 K/uL Eosinophils # (Auto) 0.36 0.00-0.70 K/uL Basophils # (Auto) 0.07 0.00-0.20 K/uL Absolute Immature Granulocyte (auto 0.07 0-1 K/uL Segmented Neutrophils % 31 L 40-70 % Band Neutrophils % 1 0-2 % Lymphocytes % (Manual) 62 H 22-44 % Monocytes % (Manual) 4 2-9 % Eosinophils % (Manual) 2 1-6 % Nucleated Red Blood Cells 0.0 0.0-0.19 % Differential Comment MANUAL DIFFERENTIAL White Cell Morphology Comment REACTIVE LYMPHS 1+ Platelet Morphology Comment ADEQUATE Red Blood Cell Morphology ANISO 1+ Chemistry Labs: Test 09/27/24 13:15 09/27/24 04:10 09/26/24 16:03 09/26/24 08:23 Range/Units Troponin I High Sensitivity 171 *H 4-50 ng/L Sodium Level 141 136-145 mmol/L Potassium Level 4.6 3.5-5.1 mmol/L Chloride Level 106 101-111 mmol/L Carbon Dioxide Level 29 21-32 mmol/L Blood Urea Nitrogen 13 7-18 mg/dL Creatinine 0.5 0.5-1.0 mg/dL Glomerular Filtration Rate Calc 103 >90 mL/min Random Glucose 84 70-105 mg/dL Total Calcium 9.1 8.5-10.1 mg/dL Phosphorus Level 4.2 2.5-4.9 mg/dL Magnesium Level 2.00 1.80-2.40 mg/dL Whole Blood Glucose 125 H 70-110 MG/DL Hemoglobin A1c 5.5 4.0-6.0 % Estimated Average Glucose (eAG) 111 70-126 mg/dL Thyroid Stimulating Hormone (TSH) 1.38 # 0.36-3.74 uIU/mL Test 09/25/24 23:13 09/25/24 22:52 Range/Units Troponin I < 0.05 0.00-0.05 ng/mL B-Type Natriuretic Peptide 28 0-100 pg/mL Coagulation Labs: Test 09/27/24 08:01 Range/Units Activated Partial Thromboplast Time 64.1 H 26.3-35.5 SEC DIAGNOSTICS / RADIOLOGY RESULTS: na PLAN NEURO: Minimize central acting medications as possible. Maintain fall precautions, adequate lighting during the day PULMONARY: Supplemental 02 as needed. Maintain aspiration precautions at all times CARDIOVASCULAR: Follow hemodynamics. Vital signs per facility protocol GI & NUTRITION: Continue with nutritional support. Continue stool softeners and laxatives as needed. KIDNEYS & ELECTROLYTES: Strict monitoring of intake, output and overall fluid balance. Avoid nephrotoxic medications to the extent possible. Medications to be dosed according to renal function. Monitor electrolytes and replace as needed ENDOCRINE: Maintain blood glucose between 100-180 at all times. Hypoglycemia protocol in place INFECTIOUS DISEASE: Trend temperature, WBC and procalcitonin level Follow cultures, deescalate antibiotics as soon as possible. Panculture if new onset fever ONCOLOGY/HEMATOLOGY/COAGULATION: Monitor for s/s of bleeding Monitor hemoglobin, coagulation studies as needed SKIN: Pressure ulcer prevention per facility protocol Specialty mattress ORTHO/REHAB: Continue PT/OT Prophylaxis: Continue GI and DVT prophylaxis Code Status: Full Resuscitation Disposition: TBD Other: Total time spent caring for patient 35 minutes Case discussed with supervising physician plan of care agreed upon LEIA MIN Sep 27, 2024 15:28 JAYANT CHRISTIE MD Sep 28, 2024 08:18
--- NOTE | 2024-09-27 16:33 | HMCSR ---
APPROVED REPORT EXAM: Two-dimensional and M-mode echocardiogram with Doppler and color Doppler. INDICATION ICD: Non ST-elevation MS I21.4 2D Dimensions IVSd1.0 (0.7-1.1cm)LVEF(%)69.2 (>50%)LVED Vol(simp.)52.1 mL LVDd4.4 (3.8-5.6cm)FS(%)39 %LVES Vol(simp.)13.8 mL PWd1.0 (0.7-1.1cm)LA (2D)3.9 (1.6-4.0cm)LVEF(%, simp.)74 % IVSs1.5 cmAo Root(2D)2.8 (2.0-3.7cm)LA ESV INDEX (4CH)25.70 mL/m2 LVDs2.7 (2.5-4.0cm)LVOT diam1.8 (1.8-2.4cm)LA ESV INDEX (2CH)30.60 mL/m2 PWs1.4 cmLA ESV INDEX (BP)26.70 mL/m2 Deformation Strain Apical 416.0 % Apical 223.0 % Apical 327.0 % Global Ehrenk50.0 % M-Mode Dimensions EPSS0.5 cm LA (MM)4.0 (1.6-4.0cm) Ao Root(MM)2.4 (2.0-3.7cm) Aortic Valve AoV VTI0.3 mAo Mean GR5.0 mmHgLVOT VTI0.19 m ARI (VMAX)1.4 cm2AVA (VTI) 1.4 cm2 Mitral Valve MV E Vmax63.5 cm/sDECEL Hyem063 ms MV A Vmax78.6 cm/sP 1/2 T80 ms E/A ratio0.8MVA (PHT)2.8 cm2 TDI E/E' Vnfsgk96.9E/E' Lateral9.2 Medial E' Peak V5.80 cm/sLateral E' Peak V6.90 cm/s Pulmonary Valve PV Vmax1.0 m/s PV Peak GR3.6 mmHg Tricuspid Valve TR Vmax1.5 m/s TR Peak GR9.1 mmHg Left Ventricle The left ventricle is normal size. GLS -22%. There is normal left ventricular wall thickness. LVEF is >70%. The left ventricular diastolic function is normal. Right Ventricle The right ventricle is normal size. The right ventricular systolic function is normal. Atria The left atrium size is normal. The right atrium size is normal. Aortic Valve The aortic valve is normal in structure. No aortic regurgitation is present. There is no aortic valvu lar stenosis. Mitral Valve The mitral valve is normal in structure. There is no mitral valve regurgitation noted. There is no mi tral valve stenosis. Tricuspid Valve The tricuspid valve is normal in structure. There is no tricuspid valve regurgitation noted. Pulmonic Valve The pulmonary valve is normal in structure. There is no pulmonic valvular regurgitation. Great Vessels The aortic root is normal in size. The IVC is normal in size and collapses >50% with inspiration. Pericardium There is no pericardial effusion. Conclusion LVEF is >70%. The left atrium size is normal. There is no aortic valvular stenosis. There is no pericardial effusion.
[2024-09-27 16:44] VITALS: BP 151/75; PULSE 59; RESP 16; TEMP 98.2
--- NOTE | 2024-09-27 17:01 | DS ---
[facility] DISCHARGE SUMMARY Date Patient Seen: Sep 27, 2024 Time of Visit: 16:57 Supervising Physician: Dr. Camarena Primary Care Physician: Dr. Ambriz Outpatient Specialists: [ ] Inpatient Consults: Cardiology PROBLEM LIST: AFib with RVR on Xarelto, resolved Non-STEMI likely type 2 ischemic demand secondary to above , resolved Left ventricular ejection fraction 70% as per echocardiogram 01/09/2024 Hypertension Hyperlipidemia Anxiety GERD HOSPITAL COURSE: HPI (per admitting provider)Patient is 64-year-old female who came via EMS with complaints of severe left-sided chest pain that started around 8:00 p.m. which is about 2-3 hours ago. She was noted to be quite diaphoretic and was in severe discomfort. She thought that she was having severe anxiety attack. She reports some nausea but no loss of consciousness. She appeared very sick during my evaluation. Her last meal was around 2:00 p.m.. No cough sputum or hemoptysis Temperature 98 pulse 148 respirations 16 blood pressure 106/92 with a pulse oximetry of 97% on room air Her chronic medical problems include diabetes mellitus, hypertension, atrial fibrillation on Xarelto, anxiety, gastroesophageal reflux disease, hypercholesterolemia patient was seen examined by bedside with no family present. Patient at time of visit denies any reoccurrence chest pain, denies shortness of breadth. Patient in and out of a flutter. Patient's troponin trending down latest troponin 217 troponin level peaked at 478. Patient's echocardiogram shows EF greater than 70% left atrium size is there is no aortic valvular stenosis no pericardial effusion. Was notified by primary nurse at 4:50 p.m. that patient had been cleared by access liaison Dr. Soto for discharge home. Heparin drip had been discontinued by access liaison, recommendations for patient to follow up with Cardiology within one week, also instructed patient to follow up with primary care doctor within 3-5 days. Patient to resume current home medications instructed patient be discharged today agrees with the has no questions at this time. The patient was treated for the following problems: ACTIVE PROBLEM LIST FOR THE HOSPITALIZATION:AFib with RVR on Xarelto, resolved Non-STEMI likely type 2 ischemic demand secondary to above , resolved CHRONIC PROBLEMS: continue previous management per PCP unless otherwise indicated WATCH ADJUSTER FINDINGS/RECOMMENDATIONS: Cleared from cardiology standpoint for discharge needs a follow up appointment within one week PROCEDURES: as mentioned above DISCHARGE MEDICATIONS: Pt hemodynamically stable and afebrile at time of discharge. Continued Medications: Amlodipine Besylate (Amlodipine Besylate) 5 Mg Tablet 1 TAB PO DAILY for 30 Days, #30 TAB 0 Refills Evolocumab (Repatha Sureclick) 140 Mg/Ml Pen.injctr 1 ML SQ [id number] Metoprolol Succinate (Metoprolol Succinate) 50 Mg Tab.er.24h 1 TAB PO HS for 30 Days, #30 TAB 0 Refills Netarsudil Mesylat/Latanoprost (Rocklatan 0.02%-0.005% Eye Drp) 0.02 %-0.005 % Drops 1 DROP OU HS Rivaroxaban (Xarelto) 20 Mg Tablet 20 MG PO HS, TAB Timolol Maleate/Dorzolam HCl (Cosopt Ophth Soln) 22.3 Mg-6.8 Mg/Ml Opsol 1 DROP OU BID PHYSICAL EXAM: GENERAL: alert, weak, awake oriented x 3 HEENT: EOMI, Sclera non icteric, moist mucosa NECK: Supple, no JVD, trachea midline LUNGS: Clear breath sounds bilaterally. No wheezes HEART: Regular rate and rhythm. Normal S1 and S2, without murmurs ABD: Abdomen soft, nontender. Bowel sounds present EXT: No clubbing cyanosis or edema NEURO: Alert and oriented to person, follows commands FOLLOW-UP: Follow-up with PCP in 2-3 days Follow up with Cardiology within one week RECOMMENDATIONS: See Discharge Instructions This case was seen and discussed with my supervising physician. 30 minutes spent on discharge process, including evaluation of the patient, discussion with nursing staff, medication reconciliation and follow-up appointments LEIA MIN Sep 27, 2024 17:01
[2024-09-27] MEDS: RIVAROXABAN 20 MG TABLET PO SCH (17:16)
--- NOTE | 2024-09-27 17:54 | NUR ---
DISCHARGE D/C INSTRUCTIONS GIVEN TO PT VERBALIZED UNDERSTANDING. IV AND TELE PACK REMOVED. PT WAS ADVISED TO USE CALL LIGHT WHEN RIDE IS HERE. CALL LIGHT AND BELONGINGS WITHIN REACH.
--- NOTE | 2024-09-27 18:17 | NUR ---
PT WAS ESCORTED VIA WHEELCHAIR TO PRIVATE CAR.
[2024-09-27] MEDS ORDERED: metOPROLol sucCINATE 50 MG TAB.SR.24H PO SCH (21:00)
== END 2024-09-27 18:30 | disposition home or self-care (01) ==
LOC: EDH 22:11 → EDHIP 09-26 00:03 → 2DH 09-26 03:59
PROVIDERS: ADMIT Internal Medicine Critical Care Medicine; ATTEND Internal Medicine Critical Care Medicine
DX: I48.0 Paroxysmal atrial fibrillation (principal); R07.89 Other chest pain; E78.00 Pure hypercholesterolemia, unspecified; I10 Essential (primary) hypertension; E87.6 Hypokalemia; E11.9 Type 2 diabetes mellitus without complications; K21.9 Gastro-esophageal reflux disease without esophagitis; F41.9 Anxiety disorder, unspecified; I21.A1 Myocardial infarction type 2; I25.10 Atherosclerotic heart disease of native coronary artery without angina pectoris; I25.2 Old myocardial infarction; Z90.710 Acquired absence of both cervix and uterus; Z90.49 Acquired absence of other specified parts of digestive tract; Z79.899 Other long term (current) drug therapy; Z88.8 Allergy status to other drugs, medicaments and biological substances
CPT/HCPCS: 84484 ×6; 80048 ×3; 83880; 85025 ×3; 82948 ×3; 36415 ×3; 71045; 93005 ×2; 96376; 96365; 96366 ×2; 96375; 99285; 83036; 84443; 83735 ×2; 84100 ×2; 85730 ×5; 93306; 93356; J3490; G0378 ×41; J2405; J1644 ×3